=== PATIENT | female | born 1995 | race African-American/Black ===

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

== ENCOUNTER 2017-02-06 16:50 | Emergency (ER) | payer OTHER ==
[~2017-02-06] VITALS: Ht 154.9 cm; Wt 54.4 kg
[2017-02-06 16:56] VITALS: BP 113/69
[2017-02-06] MEDS ORDERED: TDAP [DIPH/PERTUSSIS/TET] 0.5 ML VIAL IM ONE (17:32)
[2017-02-06] MEDS ORDERED: ACETAMINOPHEN ES 500 MG TABLET ONE (17:32)
[2017-02-06] MEDS: ACETAMINOPHEN ES 500 MG TABLET PO ONE (17:38)
[2017-02-06] MEDS: TDAP [DIPH/PERTUSSIS/TET] 0.5 ML VIAL IM ONE (17:39)
== END 2017-02-06 18:34 | disposition home or self-care (01) ==
LOC: ER 16:53
DX: S06.0X9A Concussion with loss of consciousness of unspecified duration, initial encounter (principal); S93.401A Sprain of unspecified ligament of right ankle, initial encounter; S20.211A Contusion of right front wall of thorax, initial encounter; S00.81XA Abrasion of other part of head, initial encounter; R51 Headache; F17.200 Nicotine dependence, unspecified, uncomplicated; F12.10 Cannabis abuse, uncomplicated; Y04.0XXA Assault by unarmed brawl or fight, initial encounter; Y93.89 Activity, other specified; Y92.89 Other specified places as the place of occurrence of the external cause; Y99.9 Unspecified external cause status
CPT/HCPCS: 70450; 71010; 73610; 73630; 90471; 90715; 99284; 99406; A4606; Z7610

== ENCOUNTER 2017-05-05 11:00 | Emergency (ER) | payer OTHER ==
[~2017-05-05] VITALS: Ht 157.5 cm; Wt 54.4 kg
[2017-05-05 12:46] LABS: BILIRUBIN,URINE Negative (NEGATIVE); BLOOD, URINE Trace-intact Ery/uL (NEGATIVE); COLOR,URINE Yellow (YELLOW); KETONES,URINE Negative (NEGATIVE); LEUKOCYTE ESTERASE ,URINE Negative (NEGATIVE); NITRITE, URINE Negative (NEGATIVE); PROTEIN,URINE Trace mg/dl (NEGATIVE); UGLUCOSE Negative (NEGATIVE); UROBILINOGEN,URINE 0.2 EU/dL (0.2)
[2017-05-05 12:49] LABS: APPEARANCE,URINE Hazy (CLEAR)
[2017-05-05 12:50] LABS: PREGNANCY TEST URINE QUAL NEGATIVE (NEGATIVE)
[2017-05-05 12:56] LABS: BACTERIA,URINE None seen /HPF (None Seen); MUCUS,URINE Few /LPF (None Seen); RBC,URINE 0-3 /HPF (0-2); SQUAMOUS EPITHELIAL CELL,UR Few /HPF (None Seen)
[2017-05-05] MEDS ORDERED: AZITHROMYCIN 250 MG TABLET ONE (12:58)
[2017-05-05] MEDS ORDERED: LIDOCAINE /MPF 1% VIAL 5 ML VIAL ONE (12:58)
[2017-05-05] MEDS ORDERED: CEFTRIAXONE 500 MG VIAL ONE (12:58)
[2017-05-05] MEDS ORDERED: AZITHROMYCIN 250 MG TABLET PO ONE (13:00)
[2017-05-05] MEDS ORDERED: CEFTRIAXONE 500 MG VIAL IM ONE (13:00)
[2017-05-05 13:22] VITALS: BP 108/62
[2017-05-08 06:09] LABS: *NEISSERIA GONORRHOEAE NAA Negative (Negative); CHLAMYDIA TRACHOMATIS NAA Negative (Negative)
== END 2017-05-05 13:22 | disposition home or self-care (01) ==
LOC: ER 11:02
DX: G89.29 Other chronic pain (principal); R10.2 Pelvic and perineal pain; F17.200 Nicotine dependence, unspecified, uncomplicated
CPT/HCPCS: 76856; 81001; 84703; 87086; 87110; 87210; 87491; 87591; 96372; 99285; A4606; J0696; J3490; Z7610; 81000-TC

== ENCOUNTER 2017-07-29 12:18 | Emergency (ER) | payer BC, OTHER ==
[~2017-07-29] VITALS: Ht 157.5 cm; Wt 54.4 kg
[2017-07-29 12:18] VITALS: BP 95/52
== END 2017-07-29 13:38 | disposition home or self-care (01) ==
LOC: ER 12:20
DX: M54.5 Low back pain (principal); F17.200 Nicotine dependence, unspecified, uncomplicated; Z87.440 Personal history of urinary (tract) infections
CPT/HCPCS: 99283; A4606; Z7610

== ENCOUNTER 2018-02-15 12:29 | Emergency (ER) | payer BC, MEDICAID ==
[~2018-02-15] VITALS: Ht 154.9 cm; Wt 54.4 kg
[2018-02-15 12:29] VITALS: BP 115/60
[2018-02-15] MEDS ORDERED: VALACYCLOVIR HCL 500 MG TABLET PO ONE (13:00)
[2018-02-15] MEDS ORDERED: VALACYCLOVIR HCL 500 MG TABLET ONE (13:16)
== END 2018-02-15 13:22 | disposition home or self-care (01) ==
LOC: ER 12:30
DX: B00.9 Herpesviral infection, unspecified (principal); F10.10 Alcohol abuse, uncomplicated; F17.200 Nicotine dependence, unspecified, uncomplicated; Z87.440 Personal history of urinary (tract) infections
CPT/HCPCS: 99283; A4606; Z7610

== ENCOUNTER 2018-02-27 03:29 | Emergency (ER) | payer BC, MEDICAID ==
[~2018-02-27] VITALS: Ht 154.9 cm; Wt 54.4 kg
[2018-02-27 03:38] VITALS: BP 123/69
== END 2018-02-27 05:19 | disposition home or self-care (01) ==
LOC: ER 03:32
DX: S01.21XA Laceration without foreign body of nose, initial encounter (principal); S51.012A Laceration without foreign body of left elbow, initial encounter; W45.8XXA Other foreign body or object entering through skin, initial encounter; Y93.89 Activity, other specified; Y92.89 Other specified places as the place of occurrence of the external cause; Y99.8 Other external cause status
CPT/HCPCS: A4606; A6402; A6403; Z7610

== ENCOUNTER 2018-03-08 11:21 | Emergency (ER) | payer MEDICAID ==
[~2018-03-08] VITALS: Ht 162.6 cm; Wt 54.4 kg
[2018-03-08 11:33] VITALS: BP 138/82
== END 2018-03-08 12:00 | disposition home or self-care (01) ==
LOC: ER 11:24
DX: S01.21XD Laceration without foreign body of nose, subsequent encounter (principal); S51.012D Laceration without foreign body of left elbow, subsequent encounter; X58.XXXD Exposure to other specified factors, subsequent encounter
CPT/HCPCS: A4606; Z7502; Z7610

== ENCOUNTER 2019-01-07 18:28 | Emergency (ER) | payer MEDICAID ==
[~2019-01-07] VITALS: Ht 154.9 cm; Wt 54.4 kg
--- NOTE | 2019-01-07 19:15 | NUR ---
PT BIBSELF C/O SORE THROAT/COUGH/CONGESTION X 1 WEEK. SOB X 3 DAYS. DENIES FEVER. PT AOX4. NAD NOTED. RESP EVEN AND UNLABORED. AFEBRILE. PT ON MONITOR IN BED 10 WITH FAMILY AT BEDSIDE. WILL CONTINUE TO MONITOR.
--- NOTE | 2019-01-07 19:59 | NUR ---
URINE COLLECTED AND SENT TO LAB
--- NOTE | 2019-01-07 20:04 | NUR ---
RADIOLOGY AT [facility] FOR XRAY
--- NOTE | 2019-01-07 21:04 | NUR ---
[facility] CALLED TO READ A CHEST XRAY
--- NOTE | 2019-01-07 21:53 | NUR ---
Patient discharged to home in stable condition. Written and verbal after care instructions given. Patient verbalizes understanding of instruction.
[2019-01-07 21:54] VITALS: BP 115/70
== END 2019-01-07 21:55 | disposition home or self-care (01) ==
LOC: ER 18:32
DX: J20.9 Acute bronchitis, unspecified (principal); F10.10 Alcohol abuse, uncomplicated; F17.200 Nicotine dependence, unspecified, uncomplicated; Y90.9 Presence of alcohol in blood, level not specified
CPT/HCPCS: 71045; 84703; 99284; A4606

== ENCOUNTER 2022-02-25 11:08 | Emergency (ER) | payer MEDICAID ==
[~2022-02-25] VITALS: Ht 154.9 cm; Wt 56.7 kg
--- NOTE | 2022-02-25 11:26 | NUR ---
BIBS FOR C/O RLQ ABD PAIN AND RIGHT GROIN PAIN 8/10 X 1WEEK. THE PATIENT IS ALERT AND ORIENTED X4. DENIES ANY DISCOMFORT UPON URINATION. WILL CONTINUE TO MONITOR THE PATIENT.
--- NOTE | 2022-02-25 11:38 | NUR ---
URINE SPECIMEN SENT TO LAB
[2022-02-25] MEDS ORDERED: CEFTRIAXONE 500 MG VIAL IM ONE (13:30)
[2022-02-25] MEDS ORDERED: CEFTRIAXONE 500 MG VIAL ONE (13:41)
[2022-02-25] MEDS ORDERED: LIDOCAINE /MPF 1% VIAL 5 ML VIAL ONE (13:43)
--- NOTE | 2022-02-25 13:50 | NUR ---
I&D DONE BY DR ANTHONY UNDER LOCAL ANESTHESIA. DRESSING APPLIED
[2022-02-25] MEDS ORDERED: IBUP-1955 PO (14:49)
[2022-02-25] MEDS ORDERED: DOXY100T2 PO (14:49)
--- NOTE | 2022-02-25 15:12 | NUR ---
Patient discharged to home in stable condition. Written and verbal after care instructions given. Patient verbalizes understanding of instruction.
[2022-02-25 15:13] VITALS: BP 103/68
== END 2022-02-25 15:13 | disposition home or self-care (01) ==
LOC: ER 11:17
DX: N75.0 Cyst of Bartholin's gland (principal); R59.0 Localized enlarged lymph nodes; Z11.3 Encounter for screening for infections with a predominantly sexual mode of transmission; F17.200 Nicotine dependence, unspecified, uncomplicated
CPT/HCPCS: 56420; 87491; 87591; 93005; 96372; 99284; A6407; J0696; J3490